=== PATIENT | male | born 1935 | race Caucasian/White ===

== ENCOUNTER 2017-10-02 18:43 | Inpatient (IN) | payer MEDICARE, BC ==
[~2017-10-02] VITALS: Ht 162.6 cm; Wt 83.1 kg
[~2017-10-02 18:43] MED LIST: ALIS300T PO; AMIL5TAB9 PO; AMLO1CAP PO; ASPI81TA31 PO; ATOR40TA PO; CHOL10005 PO; CYAN10009 PO; HYDR50TA3 PO; LEVO125T8 PO; METF500T6 PO; OMEG-83 PO; POTA15TA11 PO; SAW450CA7 PO; TAMS-3 PO; UBID100T7 PO; ZOLP10TA6 PO; [UNRECOGNIZED DRUG - CODE] PO
[2017-10-02] MEDS ORDERED: ATOR20TA PO (19:09)
[2017-10-02] MEDS ORDERED: METO-357 PO (19:09)
[2017-10-02] MEDS ORDERED: POTA10TA10 PO (19:09)
[2017-10-02] MEDS ORDERED: ASPI-605 PO (19:09)
[2017-10-02] MEDS ORDERED: LEVO150T8 PO (19:09)
[2017-10-02] MEDS ORDERED: NITROGLYCERIN OINT 1 GM PACKET TP ONE ×2 (19:12→19:15)
[2017-10-02 19:26] LABS: BASOPHILS # (AUTO) 0.1 K/uL (0.0-8.0); BASOPHILS % (AUTO) 1.4 % (0.0-2.0); EOSINOPHILS # (AUTO) 0.1 K/uL (0.0-0.7); EOSINOPHILS % (AUTO) 0.9 % (0.0-7.0); HEMOGLOBIN 11.4 g/dL (12.5-16.3); LYMPHOCYTES # (AUTO) 2.7 K/uL (20.0-40.0); LYMPHOCYTES % (AUTO) 44.1 % (20.5-51.5); MEAN CORPUSCULAR HEMOGLOBIN 31.4 uug (23.8-33.4); MEAN CORPUSCULAR HGB CONC 33 g/dL (32.5-36.3); MEAN CORPUSCULAR VOLUME 93.9 fL (73.0-96.2); MONOCYTES # (AUTO) 0.5 K/uL (2.0-10.0); MONOCYTES % (AUTO) 8.6 % (0.0-11.0); NEUTROPHILS # (AUTO) 2.7 K/uL (1.8-8.9); PLATELET COUNT (AUTO) 248 K/uL (152-348); RED BLOOD CELL COUNT(AUTO) 3.63 MIL/uL (4.06-5.63)
--- NOTE | 2017-10-02 19:30 | NUR ---
PT AMBULATED TO AND FROM BATHROOM INDEPENDENTLY W/ STEADY GAIT. DENIES DIZZINESS OR SOB.
[2017-10-02 19:45] LABS: CARBON DIOXIDE 30 mmol/L (21-32); CHLORIDE 102 mmol/L (98-107); CREATININE 1.2 mg/dL (0.6-1.3); GLUCOSE 111 mg/dL (74-106); POTASSIUM 3.6 mmol/L (3.5-5.1); UREA NITROGEN, BLOOD 21 mg/dL (7-18)
--- NOTE | 2017-10-02 19:45 | NUR ---
REPORT TAKEN FROM DAY SHIFT RN. ASSUMING PT CARE AT THIS TIME.
[2017-10-02 19:50] LABS: ALANINE AMINOTRANSFERASE 25 U/L (16-63); ALKALINE PHOSPHATASE 84 U/L (50-136); ASPARTATE AMINOTRANSFERASE 13 U/L (15-37); BILIRUBIN,DIRECT 0.2 mg/dL (0.0-0.2); TOTAL PROTEIN, SERUM 7.5 g/dL (6.4-8.2)
--- NOTE | 2017-10-02 20:47 | NUR ---
REPORT GIVEN TO MAMI FIGUEROA.
[2017-10-02 20:55] VITALS: BP 125/61
[2017-10-02] MEDS ORDERED: ZOLPIDEM 5 MG TABLET PO PRN (21:00)
[2017-10-02] MEDS ORDERED: TAMSULOSIN HCL 0.4 MG CAP.SR.24H PO SCH (21:00)
[2017-10-02] MEDS ORDERED: ATORVASTATIN 20 MG TABLET PO SCH (21:00)
[2017-10-02] MEDS ORDERED: POTASSIUM CITRATE 15 MEQ PO SCH (21:00)
[2017-10-02] MEDS ORDERED: OMEGA-3 FATTY ACIDS/FISH OIL CAPSULE PO SCH (21:00)
--- NOTE | 2017-10-02 21:13 | NUR ---
Pt. admitted to TELE, under care of Dr. DALAL Belongs List completed
[2017-10-02] MEDS ORDERED: HYDROCODONE/APAP 5-325MG TABLET PO PRN (21:15)
[2017-10-02] MEDS ORDERED: ACETAMINOPHEN 325 MG TABLET PO PRN (21:15)
[2017-10-02] MEDS ORDERED: NITROGLYCERIN 0.4 MG/TAB BOTTLE SL PRN (21:15)
[2017-10-02] MEDS ORDERED: ONDANSETRON 4 MG/2 ML VIAL IV PRN (21:15)
[2017-10-02] MEDS: METOPROLOL SUCCINATE XL 50 MG TAB.SR.24H PO SCH (22:39)
[2017-10-02] MEDS: POTASSIUM CHLORIDE 10 MEQ TAB.PRT.SR PO SCH (22:39)
[2017-10-02] MEDS: METFORMIN HCL 500 MG TABLET PO SCH (22:39)
--- NOTE | 2017-10-02 22:54 | NUR ---
Pt placed on CPAP 4, FIO2-21% at this time. RN RDG notified and aware. Pt to be monitored throughout the rest of the shift. V60 alarm parameters have been checked and remain audible at this time.
[2017-10-02] MEDS ORDERED: VALACYCLOVIR HCL 500 MG TABLET ONE (23:27)
[2017-10-02] MEDS: VALACYCLOVIR HCL 500 MG TABLET PO SCH (23:40)
[2017-10-03 00:57] VITALS: BP 122/61
[2017-10-03 04:00] VITALS: BP 120/60
--- NOTE | 2017-10-03 06:01 | NUR ---
Pt removed from CPAP and placed back on R/A. RN RDG aware and notified.
--- NOTE | 2017-10-03 06:30 | NUR ---
PT IN ROOM ALERT AWAKE IN NO ACUTE DISTRESS. DENIES ANY EPISODES OF CHEST PAIN OR SOB AT THIS TIME. 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 ABLE TO SLEEP WITH CPAP WITHOUT DIFFICULTY. V/S ARE WNL. PT MADE AWARE TO REQUEST FOR ASSISTANCE WHEN NEEDED. NO S/S OF HYPER/HYPOGLYCEMIA. 3 SIDE RAILS RAISED. CONTINUE TO MONITOR.
[2017-10-03 06:34] LABS: BASOPHILS # (AUTO) 0.1 K/uL (0.0-8.0); BASOPHILS % (AUTO) 1.5 % (0.0-2.0); EOSINOPHILS # (AUTO) 0.1 K/uL (0.0-0.7); EOSINOPHILS % (AUTO) 1.8 % (0.0-7.0); HEMOGLOBIN 10.5 g/dL (12.5-16.3); LYMPHOCYTES # (AUTO) 2.1 K/uL (20.0-40.0); LYMPHOCYTES % (AUTO) 45.3 % (20.5-51.5); MEAN CORPUSCULAR HEMOGLOBIN 31.8 uug (23.8-33.4); MEAN CORPUSCULAR HGB CONC 34 g/dL (32.5-36.3); MEAN CORPUSCULAR VOLUME 93.9 fL (73.0-96.2); MONOCYTES # (AUTO) 0.6 K/uL (2.0-10.0); MONOCYTES % (AUTO) 12.5 % (0.0-11.0); NEUTROPHILS # (AUTO) 1.8 K/uL (1.8-8.9); NEUTROPHILS % (AUTO) 38.9 % (38.5-71.5); PLATELET COUNT (AUTO) 243 K/uL (152-348); WHITE BLOOD COUNT (AUTO) 4.6 K/uL (3.6-10.2)
[2017-10-03] MEDS ORDERED: PANTOPRAZOLE SODIUM 40 MG TABLET.DR PO SCH (07:00)
[2017-10-03 07:19] LABS: THYROID STIMULATING HORMONE 2.381 mIU/mL (0.358-3.740)
--- NOTE | 2017-10-03 07:38 | NUR ---
PT IN ROOM ALERT AWAKE IN NO ACUTE DISTRESS. DENIES ANY EPISODES OF CHEST PAIN OR SOB AT THIS TIME. 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 V/S ARE WNL. PT MADE AWARE TO REQUEST FOR ASSISTANCE WHEN NEEDED. NO S/S OF HYPER/HYPOGLYCEMIA. . CONTINUE TO MONITOR.
[2017-10-03] MEDS ORDERED: LEVOTHYROXINE SODIUM 150 MCG TABLET PO SCH (07:40)
[2017-10-03 08:01] LABS: ALANINE AMINOTRANSFERASE 25 U/L (16-63); ALKALINE PHOSPHATASE 69 U/L (50-136); ASPARTATE AMINOTRANSFERASE 14 U/L (15-37); BILIRUBIN,TOTAL 0.9 mg/dL (0.2-1.0); CARBON DIOXIDE 30 mmol/L (21-32); CHLORIDE 104 mmol/L (98-107); CREATININE 1.2 mg/dL (0.6-1.3); GLUCOSE 118 mg/dL (74-106); IRON, SERUM 82 ug/dL (50-175); MAGNESIUM 1.9 mg/dL (1.8-2.4); PHOSPHOROUS 3.7 mg/dL (2.5-4.9); POTASSIUM 3.3 mmol/L (3.5-5.1); TOTAL PROTEIN, SERUM 6.7 g/dL (6.4-8.2); UREA NITROGEN, BLOOD 21 mg/dL (7-18)
[2017-10-03] MEDS: METFORMIN HCL 500 MG TABLET PO SCH ×2 (08:03→16:05)
[2017-10-03] MEDS: METOPROLOL SUCCINATE XL 50 MG TAB.SR.24H PO SCH (08:03)
[2017-10-03] MEDS: POTASSIUM CHLORIDE 10 MEQ TAB.PRT.SR PO SCH ×2 (08:03→16:05)
[2017-10-03 08:17] LABS: EOSINOPHILS % (MANUAL) 2 % (0-8); LYMPHOCYTES % (MANUAL) 45 % (20-40); MONOCYTES % (MANUAL) 13 % (2-10); NEUTROPHILS % (MANUAL) 40 % (42-75)
[2017-10-03 08:22] LABS: CHOLESTEROL 91 mg/dL (<200); HDL CHOLESTEROL 39 mg/dL (40-60); TRIGLYCERIDES 79 MG/DL (30-150)
[2017-10-03] MEDS: VALACYCLOVIR HCL 500 MG TABLET PO SCH (08:27)
[2017-10-03] MEDS ORDERED: ASPIRIN EC 81 MG TABLET.DR PO SCH (09:00)
[2017-10-03] MEDS ORDERED: POTASSIUM CHLORIDE 8 MEQ TAB.PRT.SR PO SCH (09:00)
[2017-10-03] MEDS ORDERED: METFORMIN HCL 500 MG TABLET PO SCH (09:00)
[2017-10-03] MEDS ORDERED: INSULIN REGULAR, HUMAN 300 UNIT/3 ML VIAL SQ PRN (10:00)
[2017-10-03] MEDS ORDERED: DEXTROSE 50% 50 ML DISP.SYRIN IV PRN (10:00)
[2017-10-03] MEDS ORDERED: POTASSIUM CHLORIDE 10 MEQ TAB.PRT.SR PO ONE (10:00)
[2017-10-03] MEDS: BLOOD SUGAR DIAGNOSTIC 1 EACH STRIP VI SCH ×2 (11:09→15:47)
[2017-10-03 11:22] VITALS: BP 140/62
[2017-10-03] MEDS ORDERED: LORAZEPAM 1 MG TABLET PO PRN (13:45)
[2017-10-03 13:55] LABS: *BILIRUBIN,URIN NEGATIVE (NEGATIVE); *BLOOD, URINE NEGATIVE (NEGATIVE); *CLARITY,URINE CLEAR (CLEAR); *COLOR,URINE YELLOW (YELLOW); *KETONES,URINE NEGATIVE (NEGATIVE); *PROTEIN,URINE 1+ (NEGATIVE); *UROBILINOGEN,URINE 0.2 E.U./dl (NORMAL); LEUKOCYTE ESTERASE ,URINE NEGATIVE (NEGATIVE); NITRITE, URINE NEGATIVE (NEGATIVE); UGLUCOSE NEGATIVE (NEGATIVE)
[2017-10-03 14:05] LABS: BACTERIA,URINE FEW /HPF (NONE SEEN); RBC,URINE 0-3 /HPF (0-3); SQUAMOUS EPITHELIAL CELL,UR FEW /HPF (NONE SEEN); WBC,URINE 0-3 /HPF (0-3)
[2017-10-03 14:36] LABS: *OCCULT BLOOD STOOL POSITIVE (NEGATIVE)
[2017-10-03 15:48] VITALS: BP 143/67
--- NOTE | 2017-10-03 17:32 | NUR ---
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
[2017-10-12] MEDS ORDERED: METFORMIN HCL 500 MG TABLET PO SCH (21:00)
== END 2017-10-03 18:30 | disposition home or self-care (01) | DRG 880 ==
LOC: ER 18:44 → TELE 20:47
PROVIDERS: ADMIT Internal Medicine; ATTEND Nurse Practitioner Acute Care
DX: F41.9 Anxiety disorder, unspecified (principal); E11.65 Type 2 diabetes mellitus with hyperglycemia; D64.9 Anemia, unspecified; D46.9 Myelodysplastic syndrome, unspecified; E03.9 Hypothyroidism, unspecified; K21.9 Gastro-esophageal reflux disease without esophagitis; K92.1 Melena; H91.90 Unspecified hearing loss, unspecified ear; I25.2 Old myocardial infarction; Z95.5 Presence of coronary angioplasty implant and graft; I25.10 Atherosclerotic heart disease of native coronary artery without angina pectoris; E78.5 Hyperlipidemia, unspecified; Z87.891 Personal history of nicotine dependence; Z79.82 Long term (current) use of aspirin; Z79.899 Other long term (current) drug therapy; Z85.820 Personal history of malignant melanoma of skin; Z98.49 Cataract extraction status, unspecified eye; Z87.442 Personal history of urinary calculi; Z79.84 Long term (current) use of oral hypoglycemic drugs; G47.30 Sleep apnea, unspecified; E87.6 Hypokalemia; Z86.018 Personal history of other benign neoplasm; I11.9 Hypertensive heart disease without heart failure
CPT/HCPCS: 36415; 70030-TC; 71045; 83550; 83605; 83735; 84100; 84443; 85025; 85730; 87040; 87086; 93005; 93307; A4663; J1815